=== PATIENT | female | born 1935 | race Hispanic/Latino ===

== ENCOUNTER 2018-02-14 10:26 | Day surgery (SDC) | payer MEDICARE ==
[~2018-02-14 10:26] MED LIST: ANCEF/STERILE WATER 2 GM/20 ML 2 GM/20 ML SYRINGE IV SCH; MARCAINE 0.5% INFILTRATI ONE
[2018-02-14 11:47] LABS: INR 1.15 (0.87-1.13)
[2018-02-14] MEDS ORDERED: NACL 0.9% 1000 ML 1,000 ML ONE (12:14)
[2018-02-14] MEDS ORDERED: PEPCID IV ONE (12:14)
[2018-02-14] MEDS ORDERED: DEPO-MEDROL ONE (12:18)
[2018-02-14] MEDS ORDERED: MARCAINE 0.5% 30 ML INFILTRATI ONE (12:19)
--- NOTE | 2018-02-14 12:20 | Anesthesia Day of Surgery ---
Anesthesia Day of Surgery - Day of Surgery Patient Examined: Yes Patient H&P Reviewed: Yes Patient is NPO: Yes Beta Blockers: Yes (Coreg)
[2018-02-14] MEDS ORDERED: XYLOCAINE MPF 2% ONE (12:21)
[2018-02-14] MEDS ORDERED: DIPRIVAN 10 MG/ML IV ONE (12:21)
[2018-02-14] MEDS ORDERED: SUBLIMAZE ONE (12:23)
[2018-02-14] MEDS ORDERED: ZOFRAN IV PRN (12:24)
--- NOTE | 2018-02-14 12:24 | Anesthesia Consultation ---
Anesthesia Consult and Med Hx - Airway Anesthetic Teeth Evaluation: Good ROM Head & Neck: Adequate Mental/Hyoid Distance: Adequate Mallampati Class: Class III Intubation Access Assessment: Good - Pulmonary Exam CTA: Yes - Cardiac Exam Cardiac Exam: RRR - Pre-Operative Health Status ASA Pre-Surgery Classification: ASA3 Proposed Anesthetic Plan: General - Pulmonary Hx Smoking: No Hx Sleep Apnea: No (HUMPHREY PRE SCREEN LOW RISK) - Cardiovascular System Hx Hypertension: Yes (X 20 YRS) Hx Heart Attack/AMI: No Hx Pacemaker: Yes Hx Peripheral Vascular Disease: Yes (LEGS) - Central Nervous System CVA: No (TIA X 2 - 5 YRS AGO - NO DEFICITS) - Gastrointestinal Hx Gastroesophageal Reflux Disease: Yes - Endocrine Hx Hypothyroidism: Yes (ON DAILY MEDS) - Hematic Hx Anemia: Yes - Other Systems Hx Cancer: Yes (SKIN CANCER REMOVED)
--- NOTE | 2018-02-14 12:25 | Anesthesia Consultation ---
Anesthesia Consult and Med Hx Date of service: 02/14/18 - Airway Anesthetic Teeth Evaluation: Good ROM Head & Neck: Adequate Mental/Hyoid Distance: Adequate Mallampati Class: Class II Intubation Access Assessment: Possibly Difficult - Pulmonary Exam CTA: Yes - Cardiac Exam Cardiac Exam: RRR - Pre-Operative Health Status ASA Pre-Surgery Classification: ASA3 Proposed Anesthetic Plan: General - Pulmonary Hx Smoking: No Hx Sleep Apnea: No (HUMPHREY PRE SCREEN LOW RISK) - Cardiovascular System Hx Hypertension: Yes (X 20 YRS) Hx Heart Attack/AMI: No Hx Cardia Arrhythmia: Yes (para a-fib) Hx Pacemaker: Yes Hx Peripheral Vascular Disease: Yes (LEGS) - Central Nervous System CVA: Yes (TIA X 2 - 5 YRS AGO - NO DEFICITS) - Endocrine Hx Non-Insulin Dependent Diabetes: Yes (takes metformin) Hx Hypothyroidism: Yes (ON DAILY MEDS) - Hematic Hx Anemia: Yes - Other Systems Hx Cancer: Yes (SKIN CANCER REMOVED)
[2018-02-14] MEDS ORDERED: PEPCID IV NR (13:00)
[2018-02-14] MEDS ORDERED: NACL 0.9% 1000 ML 1,000 ML IV SCH ×2 (13:00)
[2018-02-14] MEDS ORDERED: MARCAINE 0.5% INFILTRATI ONE (13:30)
[2018-02-14] MEDS: DILAUDID IV PRN ×4 (14:17→14:55)
--- NOTE | 2018-02-14 14:43 | Operative Report ---
PREOPERATIVE DIAGNOSES: Right knee with degenerative joint disease and meniscal tear. POSTOPERATIVE DIAGNOSES: 1. Right knee with complex global tear lateral meniscus. 2. Tear of posterior horn medial meniscus. 3. Multiple loose bodies. 4. Synovitis. 5. Grade 3 chondromalacia of medial femoral condyle. 6. Grade 3 chondromalacia of lateral femoral condyle. PROCEDURES PERFORMED: 1. Right knee arthroscopy with partial medial and lateral meniscectomies. 2. Extensive synovectomy. 3. Removal of multiple loose bodies. 4. Chondroplasty, medial femoral condyle. SURGEON: Alexsander Botello M.D. [employer] MANAGER: Dr. Cyril Power. ANESTHESIA: General. ESTIMATED BLOOD LOSS: Minimal. COMPLICATIONS: None. DESCRIPTION OF PROCEDURE: The patient underwent successful induction of anesthesia. Lower extremity was then carefully positioned in leg villa and had been exsanguinated with tourniquet and prepped and draped in usual fashion. Antibiotics were preadministered. Arthroscopy was carried out in standard medial and lateral portals. Systematic exam was carried out and demonstrated the findings as noted. Patellofemoral compartment relatively well preserved. Notch with normal ACL and PCL. Tricompartmental synovitis debrided. Medial compartment with diffuse grade 3 chondromalacia of medial femoral condyle. A gentle chondroplasty was affected with a full-radius resector of unstable flaps. Meniscus demonstrated tearing of the posterior horn debrided with combination of a full-radius resector and a surface lining preservation of peripheral 70% meniscus and excellent stable rim was achieved. The body and the anterior horn were well preserved. Lateral compartment demonstrated marked tearing of the meniscus globally, especially involving the body with a peripheral horizontal cleavage and the flap radial tears. To be the extra combination of bites full resector and surface, excellent stable rim achieved allowing preservation of peripheral 50-60% of meniscus in the posterior horn, 40-50% of the body, and the majority of the anterior horn. Multiple large loose chondral fragments were also removed from the submeniscal recesses. Intraoperative photos were obtained for documentation. ____. Ports were closed with nylon sutures. Steri-Strips applied. He was taken to the recovery room in satisfactory condition having tolerated the procedure well. JOB# [id number] RDP/NTS
--- NOTE | 2018-02-14 14:48 | Post Anesthesia Evaluation ---
- Post Anesthesia Evaluation Patient Participated: Yes Airway Patent: Yes Stable Respiratory Function: Yes Nausea/Vomiting: No Temp > 96.8F: Yes Pain Manageable: Yes Adequeate Hydration: Yes Anesthesia Complications: No
[2018-02-14] MEDS ORDERED: NORMODYNE IV ONE (15:03)
[2018-02-14] MEDS ORDERED: NORCO 5/325 PO PRN (16:08)
[2018-02-14 17:04] VITALS: BP 145/88
== END 2018-02-14 16:39 | disposition home or self-care (01) ==
LOC: OR 10:26
PROVIDERS: ATTEND Orthopaedic Surgery
DX: M17.11 Unilateral primary osteoarthritis, right knee (principal); M23.221 Derangement of posterior horn of medial meniscus due to old tear or injury, right knee; M23.261 Derangement of other lateral meniscus due to old tear or injury, right knee; M94.261 Chondromalacia, right knee; I10 Essential (primary) hypertension; I48.91 Unspecified atrial fibrillation; E03.9 Hypothyroidism, unspecified; E11.9 Type 2 diabetes mellitus without complications; Z79.84 Long term (current) use of oral hypoglycemic drugs; Z85.828 Personal history of other malignant neoplasm of skin; Z86.73 Personal history of transient ischemic attack (TIA), and cerebral infarction without residual deficits; Z79.899 Other long term (current) drug therapy; Z79.01 Long term (current) use of anticoagulants; Z95.0 Presence of cardiac pacemaker; Z88.5 Allergy status to narcotic agent; Z88.1 Allergy status to other antibiotic agents; Z88.8 Allergy status to other drugs, medicaments and biological substances
CPT/HCPCS: 29876; 29880; 36415; 82962; 85610; 85730; J0690; J1170; J2704; J3010; J7030; J1030